=== PATIENT | female | born 1995 | race Caucasian/White ===

== ENCOUNTER 2021-08-22 15:28 | Inpatient (IN) | payer OTHER ==
[~2021-08-22] VITALS: Ht 167.6 cm; Wt 73.5 kg
--- NOTE | 2021-08-22 15:28 | NUR ---
[id number] HOME C/O WEAKNESS, NAUSEA, AND VOMITING. BG READING HIGH METEOROLOGY PROFESSOR AND SHE RECIEVED 1L OF NS. PATIENT IS A&OX4 BUT IS LETHARGIC. PT BREATHING IS UNLABORED. PT SENT TO BED 4 AND CONNECTED.
--- NOTE | 2021-08-22 15:29 | NUR ---
URINE WAS COLLECTED AND SENT TO LAB
--- NOTE | 2021-08-22 15:39 | NUR ---
LAB AT BEDSIDE
--- NOTE | 2021-08-22 15:53 | NUR ---
PT BLOOD GLUCOSE IS 537. MD NOTIFIED.
[2021-08-22] MEDS ORDERED: IV LR 1000 ML 1,000 ML IV ONE ×2 (16:30→17:30)
[2021-08-22 16:43] LABS: BASOPHILS % (AUTO) 0.2 % (0.0-2.0); EOSINOPHILS % (AUTO) 0.2 % (0.0-6.0); HEMATOCRIT 46 % (33-45); HEMOGLOBIN 13.3 g/dL (11.5-14.8); LYMPHOCYTES # (AUTO) 2.3 K/uL (0.8-4.8); LYMPHOCYTES % (AUTO) 13.1 % (20.0-44.0); MEAN CORPUSCULAR HGB CONC 29 g/dl (31.0-36.0); MEAN CORPUSCULAR VOLUME 98 fL (82-100); MONOCYTES # (AUTO) 0.8 K/uL (0.1-1.30); MONOCYTES % (AUTO) 4.8 % (2.0-12.0); NEUTROPHILS # (AUTO) 14.4 K/uL (1.8-8.9); NEUTROPHILS % (AUTO) 81.7 % (43.0-81.0); PLATELET COUNT (AUTO) 348 K/uL (150-450); RED BLOOD CELL COUNT(AUTO) 4.73 MIL/uL (4.0-5.2); WHITE BLOOD COUNT (AUTO) 17.6 K/uL (4.3-11.0)
[2021-08-22 16:48] LABS: BILIRUBIN,URINE Negative (NEGATIVE); COLOR,URINE YELLOW (YELLOW); LEUKOCYTE ESTERASE ,URINE Negative (NEGATIVE); NITRITE, URINE Negative (NEGATIVE); PROTEIN,URINE Trace mg/dl (NEGATIVE); UGLUCOSE 500 MG/DL mg/dL (NEGATIVE); UROBILINOGEN,URINE 0.2 EU/dL (0.2)
--- NOTE | 2021-08-22 16:49 | NUR ---
X RAY AT BEDSIDE
[2021-08-22 16:54] LABS: BACTERIA,URINE None seen /HPF (None Seen); SQUAMOUS EPITHELIAL CELL,UR Few /HPF (None Seen); WBC,URINE 0-2 /HPF (0-3)
[2021-08-22 17:04] LABS: ALANINE AMINOTRANSFERASE 36 U/L (12-78); ALBUMIN 3.6 g/dL (3.4-5.0); ALKALINE PHOSPHATASE 230 U/L (46-116); BILIRUBIN,DIRECT 0.1 mg/dL (0.0-0.2); BILIRUBIN,TOTAL 0.5 mg/dL (0.2-1.0); CALCIUM, SERUM 8.5 mg/dL (8.5-10.1); CHLORIDE 97 mmol/L (98-107); CREATININE 1.3 mg/dL (0.6-1.3); LIPASE 62 U/L (73-393); POTASSIUM 4.2 mmol/L (3.5-5.1); SODIUM SERUM 133 mmol/L (136-145); TOTAL PROTEIN, SERUM 8.3 g/dL (6.4-8.2); UREA NITROGEN, BLOOD 16 mg/dL (7-18)
--- NOTE | 2021-08-22 17:06 | NUR ---
PT HAS CRITICAL LABS; GLUCOSE IS 608 AND LACTIC ACID IS 2.7. DR HORVATH WAS NOTIFIED.
[2021-08-22 17:07] LABS: GLUCOSE 608 mg/dL (74-106)
--- NOTE | 2021-08-22 17:09 | NUR ---
Vj jernigan in EDM - 08/22/21 at 1842 by ARIEL PT HAS LABS; GLUCOSE IS 608 AND LACTIC ACID IS 2.7. DR HORVATH WAS NOTIFIED.
[2021-08-22 17:10] LABS: ABG BASE EXCESS -30.8 mmol/L; ABG PCO2 14.9 mmHg (35.0-45.0); ABG PH 6.827 (7.350-7.450); ABG PO2 106.3 mmHg (75.0-100.0); COHb 0.3 % (0.5-1.5); MetHb 0.7 % (0.0-1.5); O2Hb 94.3 % (94.0-97.0); SITE, ABG Right Brachial; VENT MODE, BG ROOM AIR
--- NOTE | 2021-08-22 17:18 | NUR ---
PATIENT IS NOT ALERT OR ORIENTATED. DOCTOR ALEXANDRU WAS NOTIFIED. WILL CONTINUE TO MONITOR.
[2021-08-22] MEDS ORDERED: INSULIN REGULAR, HUMAN 100 UNIT in IV NS 0.9% 99 ML IV STA (17:21)
--- NOTE | 2021-08-22 17:21 | NUR ---
INSULIN DRIP GIVIEN AT 7UNITS/HR PER DOCTOR ALEXANDRU DUNBAR. INSULIN DRIP GIVEN IV R HAND 20G .
--- NOTE | 2021-08-22 17:29 | NUR ---
MOVE SHEET SUBMITTED AND CALLED FOR ICU BED.
[2021-08-22] MEDS ORDERED: IV PREMIX NS +20MEQ KCL 20 MEQ/L BAG IV ONE (17:30)
[2021-08-22] MEDS ORDERED: IV PREMIX NS +20MEQ KCL 1,000 L IV PRN (17:30)
[2021-08-22 17:40] LABS: MAGNESIUM 1.9 mg/dL (1.8-2.4); PHOSPHORUS 5.1 mg/dL (2.5-4.9)
[2021-08-22 17:43] LABS: ASPARTATE AMINOTRANSFERASE 28 U/L (15-37); CARBON DIOXIDE 4 mmol/L (21-32)
--- NOTE | 2021-08-22 17:59 | NUR ---
CALLED [facility] [phone]
--- NOTE | 2021-08-22 18:08 | NUR ---
SAULO OLIVIER WILL CALL US BACK
--- NOTE | 2021-08-22 18:09 | NUR ---
GOT BED 255
--- NOTE | 2021-08-22 18:22 | NUR ---
DR. MURPHY SPEAKING WITH JAROD OLIVIER.
--- NOTE | 2021-08-22 18:24 | NUR ---
[facility] CALLED CONSOLIDATOR PAGED.
--- NOTE | 2021-08-22 18:34 | NUR ---
ROOM CHANGED TO 257
--- NOTE | 2021-08-22 19:00 | NUR ---
PT BLOOD GLUCOSE EXCEEDS 600. DR HORVATH NOTIFIED.
--- NOTE | 2021-08-22 19:06 | NUR ---
ROOM ASSIGN: 255
--- NOTE | 2021-08-22 19:09 | NUR ---
[facility] CALLED SUPERVISOR COLOR PASTE MIXING PAGED.
--- NOTE | 2021-08-22 19:30 | NUR ---
REPORT GIVEN TO
[2021-08-22 19:56] LABS: PHOSPHORUS 5.8 mg/dL (2.5-4.9)
[2021-08-22] MEDS ORDERED: INSULIN REGULAR, HUMAN 100 UNIT in IV NS 0.9% 99 ML IV PRN (20:30)
[2021-08-22] MEDS ORDERED: Z GUARD REMEDY 2 OZ OINT TP PRN (20:30)
[2021-08-22] MEDS ORDERED: ACETAMINOPHEN 325 MG TABLET PO PRN (20:30)
[2021-08-22] MEDS ORDERED: MAGNESIUM HYDROXIDE 30 ML UDC PO PRN (20:30)
[2021-08-22] MEDS ORDERED: ONDANSETRON HCL/PF 4 MG/2 ML VIAL IVP PRN (20:30)
[2021-08-22] MEDS ORDERED: MAG HYDROX/AL HYDROX/SIMETH 30 ML UDC PO PRN (20:30)
--- NOTE | 2021-08-22 20:50 | NUR ---
patient voided 3,800 ml of urine.
--- NOTE | 2021-08-22 21:15 | NUR ---
ANGIOGRAPHY TECHNOLOGIST RCD PT W/TEMP 95.5 AND W/BSWR IN PLACE NO ORDERS NOTED WILL INFORM MD.
[2021-08-22 21:24] VITALS: BP 121/67
[2021-08-22 22:00] VITALS: BP 125/58
--- NOTE | 2021-08-22 22:00 | NUR ---
DISPERSION MIXER OBTAINED ORDERS AND PLACED MYRNA HUGGER. PT ALERT WITH MOMENTS OF CONFUSION; ATTEMPTED TO GET OUT OF BED. PER ER REPORT PT PULED OUT TWO IV LINES AND NEEDED TO BE RESTRAINED. RESTRAINTS REMAIN ON AT THIS TIME.
[2021-08-22 22:07] LABS: MAGNESIUM 2.2 mg/dL (1.8-2.4); PHOSPHORUS 4.2 mg/dL (2.5-4.9)
[2021-08-22] MEDS: IV NS 0.9% 1,000 ML IV PRN (22:07)
[2021-08-22] MEDS: BLOOD SUGAR DIAGNOSTIC 1 EACH STRIP IN SCH ×2 (22:07→23:32)
--- NOTE | 2021-08-22 22:20 | NUR ---
ACCOUNTING REPRESENTATIVE RCD PT FROM ER WITH INSULIN DRIP AT 7 UNITS/HR FOR BLOOD GLUCOSE >600 PER ORDER TITRATE INSULIN TO 10; GLUCOSE AT 624 AT THI TIME S/W A JAGJIT REGARDING ORDER MAX OF 10 UNITS/HR PER SHRINK PIT SUPERVISOR MAY INCREASE INSULIN UP TO 20; ADJUSTED INSULIN DRIP TO 12.48 UNITS/HR FOR GLUCOSE OF 624. SHRINK PIT SUPERVISOR JAGJIT AWARE OF VENOUS ABG DONE IN ER. NO NEW ORDERS FOR ANY ADDITIONAL LAB WORK AT THIS TIME.
--- NOTE | 2021-08-22 22:21 | NUR ---
FLOSSER PER PT OKAY TO GIVE BOY FRIEND RONALDO ALMONTE UPDATE ON PTS CONDITION. UPDATED BOY FRIEND ON PTS CONDITION. HE WOULD LIKE TO VISIT HOWEVER HE IS UNVACCINATED.
[2021-08-22 23:00] VITALS: BP 116/65
--- NOTE | 2021-08-22 23:00 | NUR ---
SPECIAL NEEDS CAREGIVER PT BF REQUESTING TO DIP STAND LOADER PTS BELONGINGS HOWEVER PT DECLINED TO HAVE HER BELONGINGS PICKED UP. PT BF WAS PREVIOUSLY TOLD HE CAN NOT VISIT HE HAS NOT RECEIVED HIS COVID VACCINE. BF WANTS TO KNOW IF HE HAD COVID IN THE PAST AND HAS RECOVERED IF HE CAN VISIT DESPITE NOT BEING VACCINATED. EXPLAINED TO HIM UNVACCINATED VISITORS ARE NOT ALLOWED TO VISIT.
[2021-08-23] VITALS (25 sets, daily range): BP systolic 92–130; BP diastolic 31–74
[2021-08-23] MEDS: BLOOD SUGAR DIAGNOSTIC 1 EACH STRIP IN SCH ×24 (00:13→23:00)
--- NOTE | 2021-08-23 00:50 | NUR ---
UTILITY MECHANIC PEGGY CALL FROM PTS BF RONALDO ALMONTE THAT PT CALLED HIM TO SAY WE WOULD NOT GIVE HER WATER AND WOULD NOT ANSWER HER CALL LIGHT. PT PREVIOUSLY EDUCATED THAT SHE MAY NOT HAVE ANYTHING TO EAT OR DRINK AT THIS TIME. PT CALL LIGHT ANSWERED MULTIPLE TIMES; PT WILL CALL THREE TIMES WITHIN ONE MINUTE. EXPLAINED TO PT SHE NEEDS TO GIVE NURSE TIME TO GET TO HER ROOM AND APPLY PPE.
--- NOTE | 2021-08-23 01:00 | NUR ---
CLINICAL APPLICATION SPECIALIST REEDUCATED PT AND BOYFRIEND REGARDING VISITOR POLICY.
[2021-08-23] MEDS: IV NS 0.9% 1,000 ML IV PRN (01:10)
--- NOTE | 2021-08-23 02:15 | NUR ---
CATHETERIZATION LABORATORY TECHNICIAN PER ORDER IF BLOOD GLUCOSE LESS THAN 250 CHANGE NS @ 250 ML/HR TO D5 1/2 NS @ 200 ML/HR; GLUCOSE 225; IVF CHANGED AT THIS TIME.
[2021-08-23] MEDS ORDERED: IV D5/0.45 NACL 1,000 ML IV PRN (02:30)
--- NOTE | 2021-08-23 02:46 | NUR ---
PATHOLOGY TECHNOLOGIST PT MORE AWAKE ABLE TO ANSWER QUESTIONS IN FULL SENTENCES. UNABLE TO STATE THE DATE OR THE HOSPITAL SHE IS IN BUT IS AWARE OF THE SITUATION.
[2021-08-23] MEDS ORDERED: INSULIN REGULAR, HUMAN 100 UNIT in IV NS 0.9% 99 ML IV PRN (03:00)
--- NOTE | 2021-08-23 05:00 | NUR ---
REAL PROPERTY EVALUATOR PT APPEARS CALM AND COMPLIANT BSWR REMOVED AT THIS TIME.
[2021-08-23 05:29] LABS: BASOPHILS % (AUTO) 0.2 % (0.0-2.0); HEMATOCRIT 36 % (33-45); HEMOGLOBIN 11.4 g/dL (11.5-14.8); LYMPHOCYTES # (AUTO) 0.8 K/uL (0.8-4.8); MEAN CORPUSCULAR HGB CONC 32 g/dl (31.0-36.0); MEAN CORPUSCULAR VOLUME 89 fL (82-100); MONOCYTES # (AUTO) 1.3 K/uL (0.1-1.30); MONOCYTES % (AUTO) 9.8 % (2.0-12.0); NEUTROPHILS # (AUTO) 11.4 K/uL (1.8-8.9); PLATELET COUNT (AUTO) 297 K/uL (150-450); RED BLOOD CELL COUNT(AUTO) 4.03 MIL/uL (4.0-5.2); WHITE BLOOD COUNT (AUTO) 13.5 K/uL (4.3-11.0)
[2021-08-23 05:46] LABS: ALBUMIN 2.9 g/dL (3.4-5.0); BILIRUBIN,TOTAL 0.3 mg/dL (0.2-1.0); CREATININE 1.3 mg/dL (0.6-1.3); POTASSIUM 3.5 mmol/L (3.5-5.1)
[2021-08-23 05:51] LABS: PHOSPHORUS 0.8 mg/dL (2.5-4.9)
[2021-08-23] MEDS ORDERED: NEUTRA PHOS 1 POWD.PACKET PO ONE ×3 (06:30→15:00)
[2021-08-23] MEDS ORDERED: Potassium Chloride 40 MEQ in IV D5/0.45 NACL 1,000 ML IV PRN ×2 (09:00→11:21)
[2021-08-23] MEDS ORDERED: Sodium Phosphate 15 MMOL in IV NS 0.9% 245 ML IV SCH (09:00)
[2021-08-23 09:28] LABS: CALCIUM, SERUM 8.3 mg/dL (8.5-10.1); CREATININE 1.3 mg/dL (0.6-1.3); POTASSIUM 3.7 mmol/L (3.5-5.1)
[2021-08-23] MEDS: POTASSIUM PHOSPHATE MM 7.5 MMOL in IV NS 0.9% 100 ML IV SCH ×2 (10:36→13:35)
[2021-08-23] MEDS: PANTOPRAZOLE 40 MG VIAL IV SCH (10:39)
[2021-08-23] MEDS ORDERED: IV NS 0.9% 250 ML IV PRN (11:00)
--- NOTE | 2021-08-23 12:15 | NUR ---
RN NOTES RECEIVED PT ON BED, A/Ox4, ON TELE SR -ST , LIZARRAGA DRAINING TO GRAVITY, PT NPO , ON INSULIN DRIP AND ACCU CHECK Q 1H, SR UP x3, CALL LIGHT WITHIN EASY REACH, BED LOCKED AND IN LOWEST POSITION, CONTINUE TO MONITOR .
[2021-08-23 13:18] LABS: CALCIUM, SERUM 7.7 mg/dL (8.5-10.1); CREATININE 1.1 mg/dL (0.6-1.3); POTASSIUM 3.4 mmol/L (3.5-5.1)
--- NOTE | 2021-08-23 14:00 | NUR ---
RN NOTES PT'S FOUND IN THE ROOM DRINKING WATER THAT BROUGHT IN BY HER BOYFRIEND . ADVISED PT TO STAY NPO PER MD ORDER PER PLAN OF CARE , PT VERBALIZES UNDERSTANDING. CONTINUE TO MONITOR BLOOD GLUCOSE .
[2021-08-23] MEDS: Potassium Chloride 40 MEQ in IV D5/0.45 NACL 1,000 ML IV PRN ×3 (15:49→22:43)
[2021-08-23 17:19] LABS: POTASSIUM 3.8 mmol/L (3.5-5.1)
--- NOTE | 2021-08-23 18:45 | NUR ---
RN NOTES NO SIGNIFICANT CHANGES NOTED ON THIS SHIFT, PT ON INSULIN DRIP , AND IVF PER MD ORDER , WILL ENDORSE TO CONSULTING SME NURSE FOR CONTINUITY OF CARE .
--- NOTE | 2021-08-23 19:55 | NUR ---
RN NOTE RECEIVED PATIENT IN BED, AO X 4, IN NO S/SX OF ACUTE DISTRESS AT THIS TIME. SATURATION AT 100% ON ROOM AIR, ST ON THE MONITOR, HR IS 105. NOTED IV SITE AT RAC 20G, AND L WRIST 20G, BOTH PATENT AND FLUSHING WELL, NO S/S OF INFECTION OR INFILTRATION. LIZARRAGA CATHETER CONNECTED TO URINE BAG IN PLACE, DRAINING TO A CLEAR YELLOW OUTPUT. NPO STATUS MAINTAINED. SAFETY MEASURES IMPLEMENTED. PATIENT BED ALARM IS ON. HEAD OF BED ELEVATED. BED IS LOCKED, IN LOWEST POSITION AND SIDE RAILS UP. CALL LIGHT WITHIN REACH OF THE PATIENT. WILL CONTINUE TO MONITOR AND REASSESS FOR ANY CHANGES.
[2021-08-23 21:17] LABS: CALCIUM, SERUM 7.7 mg/dL (8.5-10.1)
[2021-08-24] VITALS (24 sets, daily range): BP systolic 66–130; BP diastolic 24–75
[2021-08-24] MEDS: BLOOD SUGAR DIAGNOSTIC 1 EACH STRIP IN SCH ×9 (01:03→08:41)
[2021-08-24] MEDS: Potassium Chloride 40 MEQ in IV D5/0.45 NACL 1,000 ML IV PRN ×2 (02:05→05:29)
--- NOTE | 2021-08-24 02:45 | NUR ---
RN NOTE TELEPHONE CALL TO LAB TO FOLLOW UP ON RESULT OF 0100 BMP ORDERED BY MD. NO ANSWER AFTER TWO ATTEMPTS. FUNERAL PROFESSIONAL MADE AWARE
[2021-08-24 03:26] LABS: POTASSIUM 4.4 mmol/L (3.5-5.1)
[2021-08-24 03:27] LABS: CALCIUM, SERUM 8.2 mg/dL (8.5-10.1); CREATININE 1.1 mg/dL (0.6-1.3)
[2021-08-24 04:54] LABS: BASOPHILS # (AUTO) 0.1 K/uL (0.0-0.2); BASOPHILS % (AUTO) 0.9 % (0.0-2.0); EOSINOPHILS % (AUTO) 0.3 % (0.0-6.0); HEMATOCRIT 36 % (33-45); HEMOGLOBIN 11.5 g/dL (11.5-14.8); LYMPHOCYTES # (AUTO) 1.7 K/uL (0.8-4.8); LYMPHOCYTES % (AUTO) 20.3 % (20.0-44.0); MEAN CORPUSCULAR HGB CONC 32 g/dl (31.0-36.0); MEAN CORPUSCULAR VOLUME 88 fL (82-100); MONOCYTES # (AUTO) 0.6 K/uL (0.1-1.30); MONOCYTES % (AUTO) 7.9 % (2.0-12.0); NEUTROPHILS # (AUTO) 5.8 K/uL (1.8-8.9); NEUTROPHILS % (AUTO) 70.6 % (43.0-81.0); PLATELET COUNT (AUTO) 226 K/uL (150-450); RED BLOOD CELL COUNT(AUTO) 4.06 MIL/uL (4.0-5.2); WHITE BLOOD COUNT (AUTO) 8.2 K/uL (4.3-11.0)
[2021-08-24 05:00] LABS: CALCIUM, SERUM 8.4 mg/dL (8.5-10.1); PHOSPHORUS 1.7 mg/dL (2.5-4.9); POTASSIUM 4.3 mmol/L (3.5-5.1)
--- NOTE | 2021-08-24 07:00 | NUR ---
RN NOTES RECEIVED PT ON BED, A/Ox4, ON TELE SR HR IN 80'S , LIZARRAGA DRAINING TO GRAVITY, PT NPO , ON INSULIN DRIP AND ACCU CHECK Q 1H, SR UP x3, CALL LIGHT WITHIN EASY REACH, BED LOCKED AND IN LOWEST POSITION, CONTINUE TO MONITOR .
--- NOTE | 2021-08-24 07:08 | NUR ---
RN NOTE NO SIGNIFICANT CHANGES OCCURRED DURING THE SHIFT, PT STILL ON INSULIN DRIP NOW AT 3.66 UNITS/HR, AND KCL 40 MEQ IN D5 1/2 NS INFUSING AT 325 ML/HR. NPO STATUS MAINTAINED. SAFETY MEASURES IN PLACE. REPORT GIVEN TO DIEUDONNE LOCKWOOD FOR CONTINUATION OF CARE
[2021-08-24] MEDS ORDERED: DEXTROSE 50%-WATER 50 ML DISP.SYRIN IV PRN (08:30)
[2021-08-24] MEDS ORDERED: *INSULIN REGULAR(HUMULIN R)HUM 100 UNIT/ML VIAL SQ PRN (08:30)
[2021-08-24] MEDS ORDERED: NEUTRA PHOS 1 POWD.PACKET PO ONE (08:30)
[2021-08-24] MEDS: BLOOD SUGAR DIAGNOSTIC 1 EACH STRIP VI SCH ×4 (08:41→21:13)
[2021-08-24] MEDS: PANTOPRAZOLE 40 MG VIAL IV SCH (08:43)
[2021-08-24] MEDS: INSULIN REGULAR, HUMAN 100 UNIT/ML 3 ML VIAL SQ PRN ×3 (08:46→17:03)
[2021-08-24 09:14] LABS: CALCIUM, SERUM 8.8 mg/dL (8.5-10.1); POTASSIUM 4.3 mmol/L (3.5-5.1)
--- NOTE | 2021-08-24 17:09 | NUR ---
RN NOTES ELHAM D/LAURENCE PER MD ORDER
--- NOTE | 2021-08-24 18:37 | NUR ---
RN NOTES PT UP TO THE BATHROOM , VOIDING , NO DISTESS NOTED, WILL ENDORSE TO BACK PAD INSPECTOR NURSE FOR CONTINUITY OF CARE .
--- NOTE | 2021-08-24 20:00 | NUR ---
RN NOTE RECEIVED PATIENT FROM ICU, TRANSFERRED TO ROOM 101. PATIENT IN STABLE CONDITION. ALERT AND ORIENTED X4. VITAL SIGNS STABLE. BELONGING CHECKED. CALL LIGHT WITHIN REACH.
--- NOTE | 2021-08-24 20:00 | NUR ---
RN NOTES PATIENT IN STABLE CONDITION DOWNGRADED TO TELE STATUS AND TRANSFERRED TO DIVYA AT ROOM 101 REPORT GIVEN TO REYNA LOCKWOOD FOR CONTINUITY OF CARE.
[2021-08-24] MEDS ORDERED: INSULIN GLARGINE, 100 UNIT/ML CARTRIDGE SQ SCH (22:00)
[2021-08-25] VITALS: BP 119/76
[2021-08-25 04:00] VITALS: BP 130/77
--- NOTE | 2021-08-25 06:37 | NUR ---
RN NOTE PATIENT RESTING IN BED. ALERT AND ORIENTED X4. ON ROOM AIR, NO S/S OF SOB. O2 SAT 99%. DENIES ANY PAIN OR DISCOMFORT. IV ACCESS ON LEFT WRIST #20 PATENT AND INTACT. VOIDED TO RESTROOM X2 AND X1 BM. TELE MONITOR ON, HR 90'S. BED LOCKED AND IN LOWEST POSITION. CALL LIGHT WITHIN REACH. WILL ENDORSE TO AM SHIFT.
[2021-08-25 06:53] LABS: BASOPHILS # (AUTO) 0.1 K/uL (0.0-0.2); BASOPHILS % (AUTO) 1.3 % (0.0-2.0); EOSINOPHILS % (AUTO) 2.5 % (0.0-6.0); HEMATOCRIT 36 % (33-45); HEMOGLOBIN 11.5 g/dL (11.5-14.8); LYMPHOCYTES # (AUTO) 1.4 K/uL (0.8-4.8); LYMPHOCYTES % (AUTO) 27.9 % (20.0-44.0); MEAN CORPUSCULAR HGB CONC 32 g/dl (31.0-36.0); MEAN CORPUSCULAR VOLUME 88 fL (82-100); MONOCYTES # (AUTO) 0.5 K/uL (0.1-1.30); MONOCYTES % (AUTO) 10.7 % (2.0-12.0); NEUTROPHILS # (AUTO) 2.9 K/uL (1.8-8.9); NEUTROPHILS % (AUTO) 57.6 % (43.0-81.0); PLATELET COUNT (AUTO) 210 K/uL (150-450); RED BLOOD CELL COUNT(AUTO) 4.03 MIL/uL (4.0-5.2)
[2021-08-25] MEDS ORDERED: PANTOPRAZOLE 40 MG TABLET.DR PO SCH (07:30)
--- NOTE | 2021-08-25 07:30 | NUR ---
CERTIFIED NURSING ATTENDANT OPENING NOTES RECEIVED PATIENT AWAKE ON BED AND A/O X4. ON ROOM AIR TOLERATING WELL. NO SOB NOTED. NOT IN DISTRESS. WITH NO COMPLAINTS OF PAIN OR DISCOMFORT AT THIS TIME. WITH IV ACCESS AT LEFT WRIST G20, SALINE LOCKED, INTACT AND PATENT. SAFETY MEASURES IN PLACE. CALL LIGHT WITHIN REACH.BED ON LOWEST AND LOCKED POSITION, SIDE RAILS UP X2. WILL CONTINUE TO MONITOR.
[2021-08-25 07:42] LABS: CALCIUM, SERUM 8.5 mg/dL (8.5-10.1); CREATININE 0.7 mg/dL (0.6-1.3); MAGNESIUM 1.7 mg/dL (1.8-2.4); PHOSPHORUS 3.2 mg/dL (2.5-4.9); POTASSIUM 3.7 mmol/L (3.5-5.1)
[2021-08-25 08:00] VITALS: BP 127/85
[2021-08-25] MEDS ORDERED: INSU100I30 SQ (08:38)
[2021-08-25] MEDS: BLOOD SUGAR DIAGNOSTIC 1 EACH STRIP VI SCH ×2 (08:39→12:05)
[2021-08-25] MEDS: INSULIN REGULAR, HUMAN 100 UNIT/ML 3 ML VIAL SQ PRN ×2 (08:46→11:59)
[2021-08-25] MEDS: Magnesium 1GM/D5W 100ML PREMIX 100 ML IV SCH ×2 (09:53→11:49)
[2021-08-25 12:00] VITALS: BP 119/74
--- NOTE | 2021-08-25 14:30 | NUR ---
CERTIFIED MEDICAL RECORDS CODERLABORER PIPELINE NOTES PATIENT WAS SEEN BY DR. CLEANING WITH AN ORDER FOR DISCHARGE TO HOME. HOME MEDICATION PRESCRIPTION AND INSTRUCTION GIVEN TO PATIENT. DISCHARGE INSTRUCTION FORM AND BELONGINGS LIST SIGNED BY PATIENT. INSTRUCTED PATIENT TO FOLLOW UP WITH THE PRIMARY CARE PHYSICIAN 1 WEEK AFTER DISCHARGE AND TO FOLLOW UP WITH ENDOCRINOLOGY SCHEDULED. PATIENT VERBALIZED UNDERSTANDING. ACCOMPANIED PATIENT TO THE LOBBY IN STABLE CONDITION AND WAS PICKED UP BY BOYFRIEND NAMED GLORIA AND LEFT VIA PRIVATE CAR. MD AND CHARGE NURSE ARE AWARE OF THE DISCHARGE.
== END 2021-08-25 14:14 | disposition home or self-care (01) | DRG 637 ==
LOC: ER 16:39 → ICU 20:59 → TELE1 08-24 19:56
PROVIDERS: ADMIT Hospitalist; ATTEND Family Medicine
DX: E10.10 Type 1 diabetes mellitus with ketoacidosis without coma (principal); G93.41 Metabolic encephalopathy; E87.0 Hyperosmolality and hypernatremia; E83.39 Other disorders of phosphorus metabolism; D72.829 Elevated white blood cell count, unspecified; Z91.14 Patient's other noncompliance with medication regimen; Z79.4 Long term (current) use of insulin; E83.42 Hypomagnesemia; Z91.19 Patient's noncompliance with other medical treatment and regimen; Z20.822 Contact with and (suspected) exposure to COVID-19
CPT/HCPCS: 36415; 36600; 70450-TC; 71045-TC; 80048-TC; 80053-TC; 80076-TC; 81001; 82803-TC; 82947-TC; 82962-TC; 83605-TC; 83690-TC; 83735-TC; 84100-TC; 84484-TC; 84703-TC; 85025-TC; 87081-TC; A9563; C9113; C9803; G0378; J1815; J3475; J3480; J3490; J7030; J7050; J7120; U0003